=== PATIENT | male | born 1950 | race Caucasian/White ===

== ENCOUNTER 2017-06-19 10:28 | Day surgery (SDC) | payer OTHER ==
[~2017-06-19] VITALS: Ht 182.9 cm; Wt 81.6 kg
[~2017-06-19 10:28] MED LIST: AMLO5TAB2 PO
[2017-06-19] MEDS ORDERED: MIDAZOLAM HCL 5 MG/ML-1ML VIAL IV ONE (11:15)
[2017-06-19] MEDS ORDERED: FLUMAZENIL 0.1 MG/ML INJ 10ML MDV IV ONE (11:15)
[2017-06-19] MEDS ORDERED: fentaNYL CITRATE 100 MCG/2 ML VL IV ONE (11:15)
[2017-06-19] MEDS ORDERED: NALOXONE HCL 0.4 MG/ML VIAL IV ONE (11:15)
[2017-06-19] MEDS ORDERED: LIDOCAINE VISCOUS 2% 15ML UD PO ONE (11:15)
[2017-06-19] MEDS ORDERED: MIDAZOLAM HCL 1MG/1ML-2 ML VIAL ONE (11:59)
[2017-06-19] MEDS ORDERED: ANGIOMAX 250 MG VIAL IV ONE (12:06)
[2017-06-19] MEDS ORDERED: SODIUM CHL 0.9% 0 ML ONE (12:07)
[2017-06-19] MEDS ORDERED: IOHEXOL 350 MG/ML 100ML IJ ONE (12:07)
[2017-06-19] MEDS ORDERED: LIDOCAINE 2%HCL (LOCAL ANESTH.) INJ 20ML MDV ONE (12:08)
[2017-06-19] MEDS ORDERED: VERAPAMIL 2.5MG/ML INJ 2ML VIAL IV ONE (12:14)
[2017-06-19] MEDS ORDERED: IODIXANOL 320MG/ML 100ML BTL IV ONE (13:19)
[2017-06-19] MEDS ORDERED: HEPARIN SODIUM (PORCINE) 5000 UNITS/ML 1ML VIAL ONE (13:33)
== END 2017-06-19 15:30 | disposition home or self-care (01) ==
LOC: CATH 10:28
PROVIDERS: ATTEND Internal Medicine
DX: I34.1 Nonrheumatic mitral (valve) prolapse (principal); I10 Essential (primary) hypertension; Z79.01 Long term (current) use of anticoagulants
CPT/HCPCS: 93312; 93460; C1751; C1769; C1887; C1894; J1644; J2250; J3010; J7030; Q9967; 99152